=== PATIENT | female | born 1960 | race Two or more races ===

== ENCOUNTER 2017-12-24 10:56 | Inpatient (IN) | payer MEDICAID ==
[~2017-12-24] VITALS: Ht 167.6 cm; Wt 71.7 kg
[2017-12-24] MEDS ORDERED: DiphenhydrAMINE 50mg/ml Inj IVP ONE (11:00)
[2017-12-24] MEDS ORDERED: Sodium Chloride 500ML 500 ML IV ONE (11:00)
[2017-12-24 11:37] LABS: BASOPHILS % (AUTO) 0.8 % (0.0-2.0); EOSINOPHILS % (AUTO) 0.3 % (0.0-3.0); HEMATOCRIT 42.5 % (37.0-47.0); HEMOGLOBIN 14.9 G/DL (12.0-16.0); MEAN CORPUSCULAR VOLUME 90 FL (80-99); MONOCYTES % (AUTO) 4.4 % (1.0-10.0); NEUTROPHILS % (AUTO) 82.6 % (45.0-75.0); PLATELET COUNT 202 K/UL (150-450); RED BLOOD COUNT 4.75 M/UL (4.20-5.40); RED CELL DISTRIBUTION WIDTH 10.5 % (11.6-14.8); WHITE BLOOD COUNT 13.5 K/UL (4.8-10.8)
--- NOTE | 2017-12-24 11:51 | Diagnostic Imaging Report ---
Indications: Dizziness, vomiting Technique: Spiral acquisitions obtained through the brain. Angled axial and coronal 5 x 5 mm slices were reconstructed. Total dose length product 1552.03 mGycm. CTDI vol(s) 70.38 mGy. Dose reduction achieved using automated exposure control Comparison: None. Findings: No acute intracranial hemorrhage or edema. No mass effect nor midline shift. Normal ulrich-white differentiation. There is frontal calvarial hyperostosis. The mastoids are clear. The sinuses are clear. The orbits are unremarkable. Impression: Negative The CT scanner at [facility] is accredited by the [employer] and the scans are performed using protocols designed to limit radiation exposure to as low as reasonably achievable to attain images of sufficient resolution adequate for diagnostic evaluation.
[2017-12-24 11:53] LABS: ANION GAP 14 mmol/L (5-15); BLOOD UREA NITROGEN 13 mg/dL (7-18); CALCIUM 9.3 MG/DL (8.5-10.1); CARBON DIOXIDE 24 MMOL/L (21-32); CHLORIDE 102 MMOL/L (98-107); CREATININE 0.8 MG/DL (0.55-1.30); POTASSIUM 3.4 MMOL/L (3.5-5.1); SODIUM 140 MMOL/L (136-145)
--- NOTE | 2017-12-24 11:56 | Diagnostic Imaging Report ---
Indication: Chest pain Technique: One view of the chest Comparison: none Findings: There is a 1.5 cm nodule projected at the left lung base. The lungs and pleural spaces are otherwise clear. The heart size is upper limits of normal. Impression: 1.5 cm left basilar nodular opacity. Suspect that this represents a nipple shadow. Recommend repeat with nipple markers. This was discussed by phone with Dr. Cui at the time of interpretation No acute process otherwise Findings discussed by phone with Dr. Cui the time of interpretation
[2017-12-24 12:06] LABS: ALANINE AMINOTRANSFERASE 24 U/L (12-78); ALBUMIN 3.9 G/DL (3.4-5.0); ALBUMIN/GLOBULIN RATIO 0.8 (1.0-2.7); ALKALINE PHOSPHATASE 122 U/L (46-116); ASPARTATE AMINO TRANSFERASE 19 U/L (15-37); BILIRUBIN,TOTAL 0.5 MG/DL (0.2-1.0); CKMB 0.9 NG/ML (0.0-3.6); CREATINE KINASE 110 U/L (26-308)
[2017-12-24 12:16] VITALS: BP 109/62
[2017-12-24 12:28] LABS: APPEARANCE,URINE VERY CLOUDY; BILIRUBIN, URINE NEGATIVE (NEGATIVE); COLOR,URINE PALE YELLOW; GLUCOSE, URINE (UA) NEGATIVE (NEGATIVE); KETONES,URINE 2+ (NEGATIVE); LEUKOCYTE ESTERASE ,URINE 1+ (NEGATIVE); NITRITE,URINE NEGATIVE (NEGATIVE); PH,URINE 8 (4.5-8.0); PROTEIN,URINE 1+ (NEGATIVE); UROBILINOGEN,URINE NORMAL MG/DL (0.0-1.0)
[2017-12-24] MEDS ORDERED: Isovue-300 100ml vial INJ PRN (12:30)
--- NOTE | 2017-12-24 12:40 | Emergency Room Report ---
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 around 8:00 she had increased dizziness lightheadedness This was followed by multiple episodes of vomiting Patient still feels nauseated Denies any chest pain or shortness of breath denies any focal weakness Patient takes metformin for diabetes denies any other recent trauma Allergies: Coded Allergies: No Known Allergies (Unverified , 12/24/17) Patient History Past Medical History: see triage record Pertinent Family History: none Reviewed Nursing Documentation: PMH: Agreed; PSxH: Agreed Nursing Documentation-PMH Past Medical History: No History, Except For Hx Diabetes: Yes Review of Systems All Other Systems: negative except mentioned in HPI Physical Exam Vital Signs Date Time Temp Pulse Resp B/P (MAP) Pulse Ox O2 Delivery O2 Flow Rate FiO2 12/24/17 10:54 92 18 145/79 99 Room Air 12/24/17 12:16 97.5 Sp02 EP Interpretation: reviewed, normal General Appearance: mild distress - Appears uncomfortable, actively nauseated vomiting Head: normocephalic, atraumatic Eyes: bilateral eye PERRL, bilateral eye EOMI ENT: hearing grossly normal, normal pharynx, TMs + canals normal, uvula midline Neck: full range of motion, supple, no meningismus, no bony tend Respiratory: lungs clear, normal breath sounds, no rhonchi, no respiratory distress, no retraction, no accessory muscle use Cardiovascular #1: normal peripheral pulses, regular rate, rhythm, no edema, no gallop, no JVD, no murmur Gastrointestinal: normal bowel sounds, non tender, soft, no mass, no organomegaly, non-distended, no guarding, no hernia, no pulsatile mass, no rebound Genitourinary: no CVA tenderness Musculoskeletal: normal inspection Neurologic: oriented x3, responsive, 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 III-XII nml as tested, motor strength/ tone normal, sensory intact Psychiatric: mood/affect normal Skin: normal color, no rash, warm/dry, palpation normal Lymphatic: normal inspection, no adenopathy Medical Decision Making Diagnostic Impression: Primary Impression: Vomiting Additional Impressions: Persistent vomiting Severe dizziness ER Course Patient is a fairly complex patient with multiple differential to consideration including but not limited to cardiac cardiopulmonary and vascular emergencies Pathology such as infectious pathology also entertained neurological pathology given patient's severe dizziness such as occipital injury Patient's initial CT Has nonspecific findings and question possible neoplasm versus other and blood work are appropriate White blood cell count is minimally elevated there was some question of UTI as well patient further hydrated And placed into admission for further care Labs Test 12/24/17 11:00 12/24/17 11:23 12/24/17 11:56 White Blood Count 13.5 K/UL (4.8-10.8) Red Blood Count 4.75 M/UL (4.20-5.40) Hemoglobin 14.9 G/DL (12.0-16.0) Hematocrit 42.5 % (37.0-47.0) Mean Corpuscular Volume 90 FL (80-99) Mean Corpuscular Hemoglobin 31.4 PG (27.0-31.0) Mean Corpuscular Hemoglobin Concent 35.0 G/DL (32.0-36.0) Red Cell Distribution Width 10.5 % (11.6-14.8) Platelet Count 202 K/UL (150-450) Mean Platelet Volume 7.5 FL (6.5-10.1) Neutrophils (%) (Auto) 82.6 % (45.0-75.0) Lymphocytes (%) (Auto) 12.0 % (20.0-45.0) Monocytes (%) (Auto) 4.4 % (1.0-10.0) Eosinophils (%) (Auto) 0.3 % (0.0-3.0) Basophils (%) (Auto) 0.8 % (0.0-2.0) Sodium Level 140 MMOL/L (136-145) Potassium Level 3.4 MMOL/L (3.5-5.1) Chloride Level 102 MMOL/L (98-107) Carbon Dioxide Level 24 MMOL/L (21-32) Anion Gap 14 mmol/L (5-15) Blood Urea Nitrogen 13 mg/dL (7-18) Creatinine 0.8 MG/DL (0.55-1.30) Estimat Glomerular Filtration Rate > 60 mL/min (>60) Glucose Level 220 MG/DL (74-106) Calcium Level 9.3 MG/DL (8.5-10.1) Total Bilirubin 0.5 MG/DL (0.2-1.0) Aspartate Amino Transf (AST/SGOT) 19 U/L (15-37) Alanine Aminotransferase (ALT/SGPT) 24 U/L (12-78) Alkaline Phosphatase 122 U/L (46-116) Total Creatine Kinase 110 U/L (26-308) Creatine Kinase MB 0.9 NG/ML (0.0-3.6) Creatine Kinase MB Relative Index 0.8 Troponin I 0.017 ng/mL (0.000-0.056) Total Protein 8.5 G/DL (6.4-8.2) Albumin 3.9 G/DL (3.4-5.0) Globulin 4.6 g/dL Albumin/Globulin Ratio 0.8 (1.0-2.7) Lipase 146 U/L (73-393) Urine Color Pale yellow Urine Appearance Very cloudy Urine pH 8 (4.5-8.0) Urine Specific [place] 1.015 (1.005-1.035) Urine Protein 1+ (NEGATIVE) Urine Glucose (UA) Negative (NEGATIVE) Urine Ketones 2+ (NEGATIVE) Urine Blood Negative (NEGATIVE) Urine Nitrite Negative (NEGATIVE) Urine Bilirubin Negative (NEGATIVE) Urine Urobilinogen Normal MG/DL (0.0-1.0) Urine Leukocyte Esterase 1+ (NEGATIVE) Urine RBC 0-2 /HPF (0 - 2) Urine WBC 2-4 /HPF (0 - 2) Urine Squamous Epithelial Cells Occasional /LPF Urine Amorphous Sediment Many /LPF (NONE) Urine Bacteria Moderate /HPF (NONE) EKG Diagnostic Results Rate: normal Rhythm: NSR ST Segments: no acute changes Rhythm Strip Diag. Results EP Interpretation: yes Rate: 66 Rhythm: NSR, no PVC's, no ectopy Chest X-Ray Diagnostic Results Chest X-Ray Diagnostic Results : Chest X-Ray Ordered: Yes # of Views/Limited/Complete: 1 View Indication: Chest Pain EP Interpretation: No PA Xray: Interpretation reviewed - radiology Impression: Other - Impression: 1.5 cm left basilar nodular opacity. Suspect that this represents a nipple shaddow Electronically Signed by: Radiology CT/MRI/US Diagnostic Results CT/MRI/US Diagnostic Results : Impression CT abdomen pelvisImpression: Limited assessment of the GI tract, due to lack of enteric contrast administration No definite acute process 12 mm irregular opacity within the right posterior costophrenic sulcus. Most likely an area of scarring but possibly of neoplasm should also be considered. Consider further evaluation with PET/CT versus short interval three-month follow-up No definite abnormality seen to correspond to the nodular opacity seen on recent chest radiograph. However, this could be excluded from the imaging volume and as previously recommended nipple markers chest radiograph should be performed Cholelithiasis Nonobstructive left renal calyceal calculi Last Vital Signs Date Time Temp Pulse Resp B/P (MAP) Pulse Ox O2 Delivery O2 Flow Rate FiO2 12/24/17 12:16 97.5 66 19 109/62 97 Room Air Status: improved Disposition: ADMITTED INPATIENT Condition: Serious Referrals: NON PHYSICIAN (PCP) Jackeline Cui DO Dec 24, 2017 12:40
[2017-12-24] MEDS ORDERED: METFORMIN HCL1000 M1 ORAL (13:23)
--- NOTE | 2017-12-24 13:33 | Diagnostic Imaging Report ---
Indication: Abdominal pain, vomiting Technique: Spiral acquisitions obtained through the abdomen and pelvis. No oral contrast utilized, per referring physician request No IV contrast utilized, per referring physician request.. Multiplanar reconstructions were generated. Total dose length product 787.68 mGycm. CTDIvol(s) 15.91 mGy. Dose reduction achieved using automated exposure control Comparison: None Findings: Lack of enteric contrast limits assessment of the GI tract. The appendix is normal. There is colonic diverticulosis. No evidence of diverticulitis. There is prominence of some of the small bowel loops, some of which are fluid-filled. Prominence extends to the terminal ileum, where there is some evidence of stasis of contents. No free or loculated intraperitoneal gas or fluid. There is a small to moderate size hiatal hernia. The remainder the stomach is unremarkable. The duodenum is unremarkable. The gallbladder contains small gallstones. It is mildly distended but no wall thickening or cholecystic inflammation is evident. Lack of IV contrast limits assessment of the solid organs. The liver, bile ducts, pancreas, spleen, adrenals, right kidney are unremarkable. The left kidney demonstrates to calyceal calculi, largest measuring approximately 3 mm diameter. No ureteral calculi, hydronephrosis, or hydroureter demonstrated. No pelvic mass or adenopathy. No retroperitoneal or mesenteric mass or adenopathy. An irregular opacity is seen within the right posterior costophrenic sulcus measuring 12 mm in diameter. There are posterior dependent linear atelectatic changes. No definite abnormality corresponding to the left basilar nodular opacity described on recent chest radiograph. The bones are unremarkable. Impression: Limited assessment of the GI tract, due to lack of enteric contrast administration No definite acute process 12 mm irregular opacity within the right posterior costophrenic sulcus. Most likely an area of scarring but possibly of neoplasm should also be considered. Consider further evaluation with PET/CT versus short interval three-month follow-up No definite abnormality seen to correspond to the nodular opacity seen on recent chest radiograph. However, this could be excluded from the imaging volume and as previously recommended nipple markers chest radiograph should be performed Cholelithiasis Nonobstructive left renal calyceal calculi The CT scanner at [facility] is accredited by the [employer] and the scans are performed using protocols designed to limit radiation exposure to as low as reasonably achievable to attain images of sufficient resolution adequate for diagnostic evaluation.
[2017-12-24] MEDS ORDERED: cefTRIAXone 1 GM in D5W 55 ML IVPB ONE (13:45)
[2017-12-24 14:02] VITALS: BP 105/56
[2017-12-24 14:27] VITALS: BP 124/70
[2017-12-24 16:00] VITALS: BP 128/65
[2017-12-24] MEDS: Meclizine 25mg tab ORAL PRN (16:21)
[2017-12-24] MEDS: metFORMIN 500mg tab ORAL SCH (17:56)
[2017-12-24 20:00] VITALS: BP 118/62
[2017-12-24 20:01] VITALS: BP 118/62
[2017-12-24] MEDS: NovoLOG Insulin Flexpen SUBQ SCH (20:54)
[2017-12-25] VITALS: BP 109/65
[2017-12-25] MEDS: Meclizine 25mg tab ORAL PRN (03:54)
[2017-12-25 04:00] VITALS: BP 108/73
--- NOTE | 2017-12-25 04:45 | History and Physical Report ---
DATE OF ADMISSION: 12/24/2017 HISTORY OF PRESENT ILLNESS: This is a 57-year-old female that presented to the hospital with nausea and vomiting. 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 She was seen and worked up in the ER, continued to feel nauseous. She was admitted for observation. PAST MEDICAL HISTORY: Diabetes mellitus. HOME MEDICATIONS: Metformin only. ALLERGIES: None. SOCIAL HISTORY: Noncontributory. Denies tobacco or alcohol usage. REVIEW OF SYSTEMS: She denies any headaches, hematemesis, melena, hematochezia. PHYSICAL EXAMINATION: GENERAL: Reveals a female. VITAL SIGNS: Blood pressure is 120/60, heart rate 84, respirations 18, she is afebrile. HEENT: Unremarkable. CHEST: Clear breath sounds bilaterally. ABDOMEN: Soft. EXTREMITIES: There is no edema. NEUROLOGIC: Nonfocal. LABORATORY AND DIAGNOSTIC DATA: Normal CBC with the exception of white count 29467. Potassium 3.4. Alkaline phosphatase 122. Imaging study in the ER, the patient underwent pelvic and abdominal CT which is negative except for mild cholelithiasis, possible scarring in the right posterior costophrenic sulcus, nonobstructive left renal calculi. IMPRESSION: 1. Nausea and emesis. 2. Suspect labyrinthitis. 3. Urolithiasis. 4. Cholelithiasis. DISCUSSION: 1. Admit to the hospital. 2. Diabetes care. 3. IV fluids. 4. Continue metformin and insulin sliding scale. 5. IV fluids. 6. Consider GI evaluation. 7. We will follow carefully. Jack Cabrera M.D. DR: Paulo JOB#: [id number] CC:
[2017-12-25] MEDS: NovoLOG Insulin Flexpen SUBQ SCH ×4 (05:36→20:51)
[2017-12-25 07:41] LABS: BASOPHILS % (AUTO) 0.7 % (0.0-2.0); EOSINOPHILS % (AUTO) 0.6 % (0.0-3.0); HEMATOCRIT 38.9 % (37.0-47.0); HEMOGLOBIN 14.3 G/DL (12.0-16.0); LYMPHOCYTES % (AUTO) 17.3 % (20.0-45.0); MEAN CORPUSCULAR VOLUME 90 FL (80-99); MONOCYTES % (AUTO) 5.6 % (1.0-10.0); NEUTROPHILS % (AUTO) 75.8 % (45.0-75.0); PLATELET COUNT 206 K/UL (150-450); RED BLOOD COUNT 4.33 M/UL (4.20-5.40); RED CELL DISTRIBUTION WIDTH 10.9 % (11.6-14.8); WHITE BLOOD COUNT 7.1 K/UL (4.8-10.8)
[2017-12-25 08:00] VITALS: BP 129/69
[2017-12-25 08:06] LABS: ALANINE AMINOTRANSFERASE 20 U/L (12-78); ALBUMIN 3.4 G/DL (3.4-5.0); ALBUMIN/GLOBULIN RATIO 0.8 (1.0-2.7); ALKALINE PHOSPHATASE 95 U/L (46-116); ANION GAP 8 mmol/L (5-15); ASPARTATE AMINO TRANSFERASE 17 U/L (15-37); BLOOD UREA NITROGEN 13 mg/dL (7-18); CALCIUM 8.7 MG/DL (8.5-10.1); CARBON DIOXIDE 28 MMOL/L (21-32); CHLORIDE 105 MMOL/L (98-107); CREATININE 0.7 MG/DL (0.55-1.30); POTASSIUM 3.6 MMOL/L (3.5-5.1); SODIUM 141 MMOL/L (136-145)
[2017-12-25] MEDS: metFORMIN 500mg tab ORAL SCH ×2 (08:22→17:12)
[2017-12-25] MEDS: Meclizine 25mg tab ORAL SCH ×3 (10:48→22:53)
[2017-12-25 12:00] VITALS: BP 132/78
--- NOTE | 2017-12-25 14:07 | Pulmonology Progress Note ---
Assessment/Plan Assessment/Plan IMPRESSION: 1. Nausea and emesis. 2. Suspect labyrinthitis. 3. Urolithiasis. 4. Cholelithiasis. DISCUSSION: 1. Admitted to the hospital. 2. Diabetes care. 3. IV fluids. 4. Continue metformin and insulin sliding scale. 5. IV fluids. 6. I have requestedGI evaluation. 7. I will follow carefully. 8. I will request MRI brain Subjective Interval Events: Tearful. Continues to report and dizziness Constitutional: Reports: no symptoms HEENT: Repors: no symptoms Respiratory: Reports: no symptoms Cardiovascular: Reports: no symptoms Gastrointestinal/Abdominal: Reports: nausea, vomiting Genitourinary: Reports: no symptoms Neurologic: Reports: other - vertigo Psychiatric: Reports: no symptoms Skin: Reports: no symptoms Allergies: Coded Allergies: No Known Allergies (Unverified , 12/24/17) Objective Last 24 Hour Vital Signs Date Time Temp Pulse Resp B/P (MAP) Pulse Ox O2 Delivery O2 Flow Rate FiO2 12/25/17 12:00 98.6 81 19 132/78 (96) 98 12/25/17 08:51 Room Air 12/25/17 08:00 99.4 79 19 129/69 (89) 96 12/25/17 04:00 98.2 79 20 108/73 (85) 97 12/25/17 00:00 98.5 76 20 109/65 (80) 97 12/24/17 20:21 Room Air 12/24/17 20:01 99.0 77 20 118/62 (80) 97 12/24/17 16:00 98.3 68 20 128/65 (86) 100 12/24/17 14:27 98.4 68 16 124/70 (88) 100 12/24/17 14:15 97.5 72 19 105/56 98 Room Air 12/24/17 14:08 Room Air Intake and Output 12/24/17 12/25/17 19:00 07:00 Intake Total 1180 ml Output Total 400 ml Balance 780 ml Intake Oral 680 ml IV Total 500 ml Output Urine Total 400 ml # Voids 1 2 General Appearance: no acute distress HEENT: normocephalic Respiratory/Chest: chest wall non-tender, lungs clear Cardiovascular: normal peripheral pulses Abdomen: normal bowel sounds, soft, non tender Extremities: no cyanosis Microbiology Date/Time Source Procedure Growth Status 12/24/17 11:56 Urine,Clean Catch Urine Culture - Preliminary Resulted Laboratory Tests 12/25/17 06:50: White Blood Count 7.1, Red Blood Count 4.33, Hemoglobin 14.3, Hematocrit 38.9, Mean Corpuscular Volume 90, Mean Corpuscular Hemoglobin 32.9H, Mean Corpuscular Hemoglobin Concent 36.6H, Red Cell Distribution Width 10.9L, Platelet Count 206 , Mean Platelet Volume 7.8, Neutrophils (%) (Auto) 75.8H, Lymphocytes (%) (Auto ) 17.3L, Monocytes (%) (Auto) 5.6, Eosinophils (%) (Auto) 0.6, Basophils (%) ( Auto) 0.7, Sodium Level 141, Potassium Level 3.6, Chloride Level 105, Carbon Dioxide Level 28, Anion Gap 8, Blood Urea Nitrogen 13, Creatinine 0.7, Estimat Glomerular Filtration Rate > 60, Glucose Level 185H, Calcium Level 8.7, Total Bilirubin 1.0, Aspartate Amino Transf (AST/SGOT) 17, Alanine Aminotransferase ( ALT/SGPT) 20, Alkaline Phosphatase 95, Total Protein 7.7, Albumin 3.4, Globulin 4.3, Albumin/Globulin Ratio 0.8L Current Medications Medications (Trade) Dose Ordered Sig/Cynthia Route PRN Reason Start Time Stop Time Status Last Admin Dose Admin Dextrose (Dextrose 50%) 25 ml Q30M PRN IV Hypoglycemia 12/24/17 17:15 01/23/18 17:14 Dextrose (Dextrose 50%) 50 ml Q30M PRN IV Hypoglycemia 12/24/17 17:15 01/23/18 17:14 Insulin Aspart (NovoLOG) BEFORE MEALS AND HS SUBQ 12/24/17 21:00 01/23/18 20:59 12/24/17 20:54 Iopamidol (Isovue-300 100ml) 100 ml NOW PRN INJ Radiology Procedure 12/24/17 12:30 Meclizine HCl (Antivert) 50 mg Q6H ORAL 12/25/17 11:00 01/24/18 10:59 12/25/17 10:48 Metformin HCl (Glucophage) 1,000 mg BID ORAL 12/24/17 18:00 01/23/18 17:59 12/25/17 08:22 Metoclopramide HCl (Reglan) 10 mg Q8H PRN IVP Nausea & Vomiting 12/25/17 13:15 01/24/18 13:14 Ondansetron HCl (Zofran) 4 mg Q6H PRN IVP Nausea & Vomiting 12/24/17 17:15 01/23/18 17:14 12/24/17 17:26 Sodium Chloride 1,000 ml @ 50 mls/hr Q20H IV 12/24/17 20:30 01/23/18 20:29 12/24/17 20:33 Jack Cabrera MD Dec 25, 2017 14:07
[2017-12-25] MEDS: Metoclopramide 10mg/2ml Inj IVP PRN (14:42)
--- NOTE | 2017-12-25 14:56 | GI Initial Consult Note ---
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 Pt seen, A&Ox4 c/o of nausea and reports persistent vomiting last night. Stated she had an episode this morning. Denied any hematemesis or coffee grounds. Family believes may be possible from ingesting bad food. Denies any diarrhea or constipation. Patient has history of DM, dx approximately 8 years ago. No history of endoscopy / colonoscopy. Home Meds Reported Medications Metformin Hcl* (METFORMIN HCL*) 1,000 Mg Tablet, 1000 MG ORAL BID, TAB 12/24/17 Med list reviewed/reconciled: Yes Allergies: Coded Allergies: No Known Allergies (Unverified , 12/24/17) Patient History Limited by: language barrier History Provided By: Patient, Family Member PMH Narrative Past Medical History: see triage record Pertinent Family History: none Reviewed Nursing Documentation: PMH: Agreed; PSxH: Agreed Nursing Documentation-PM Past Medical History: No History, Except For Hx Diabetes: Yes Social History: Denies: smoking, alcohol use, drug use, other Review of Systems All Other Systems: negative except mentioned in HPI Physical Exam Vital Signs Date Time Temp Pulse Resp B/P (MAP) Pulse Ox O2 Delivery O2 Flow Rate FiO2 12/24/17 10:54 92 18 145/79 99 Room Air 12/24/17 12:16 97.5 Sp02 EP Interpretation: reviewed, normal Labs Laboratory Tests Test 12/25/17 06:50 White Blood Count 7.1 K/UL (4.8-10.8) Red Blood Count 4.33 M/UL (4.20-5.40) Hemoglobin 14.3 G/DL (12.0-16.0) Hematocrit 38.9 % (37.0-47.0) Mean Corpuscular Volume 90 FL (80-99) Mean Corpuscular Hemoglobin 32.9 PG (27.0-31.0) H Mean Corpuscular Hemoglobin Concent 36.6 G/DL (32.0-36.0) H Red Cell Distribution Width 10.9 % (11.6-14.8) L Platelet Count 206 K/UL (150-450) Mean Platelet Volume 7.8 FL (6.5-10.1) Neutrophils (%) (Auto) 75.8 % (45.0-75.0) H Lymphocytes (%) (Auto) 17.3 % (20.0-45.0) L Monocytes (%) (Auto) 5.6 % (1.0-10.0) Eosinophils (%) (Auto) 0.6 % (0.0-3.0) Basophils (%) (Auto) 0.7 % (0.0-2.0) Sodium Level 141 MMOL/L (136-145) Potassium Level 3.6 MMOL/L (3.5-5.1) Chloride Level 105 MMOL/L (98-107) Carbon Dioxide Level 28 MMOL/L (21-32) Anion Gap 8 mmol/L (5-15) Blood Urea Nitrogen 13 mg/dL (7-18) Creatinine 0.7 MG/DL (0.55-1.30) Estimat Glomerular Filtration Rate > 60 mL/min (>60) Glucose Level 185 MG/DL (74-106) H Calcium Level 8.7 MG/DL (8.5-10.1) Total Bilirubin 1.0 MG/DL (0.2-1.0) Aspartate Amino Transf (AST/SGOT) 17 U/L (15-37) Alanine Aminotransferase (ALT/SGPT) 20 U/L (12-78) Alkaline Phosphatase 95 U/L (46-116) Total Protein 7.7 G/DL (6.4-8.2) Albumin 3.4 G/DL (3.4-5.0) Globulin 4.3 g/dL Albumin/Globulin Ratio 0.8 (1.0-2.7) L General Appearance: well appearing, no apparent distress, alert Head: normocephalic EENT: PERRL/EOMI, normal ENT inspection Neck: supple Respiratory: normal breath sounds, no respiratory distress Cardiovascular: normal rate Gastrointestinal: normal inspection, non tender, soft, normal bowel sounds, non -distended Rectal: deferred Genitourinary: no CVA tenderness Musculoskeletal: normal inspection, back normal Neurologic: normal inspection, alert, oriented x3, responsive Psychiatric: normal inspection, judgement/insight normal, memory normal Skin: normal inspection, normal color, no rash, warm/dry, palpation normal, well hydrated Lymphatic: normal inspection, no adenopathy Current Medications Current Medications Medications (Trade) Dose Ordered Sig/Cynthia Route PRN Reason Start Time Stop Time Status Last Admin Dose Admin Dextrose (Dextrose 50%) 25 ml Q30M PRN IV Hypoglycemia 12/24/17 17:15 01/23/18 17:14 Dextrose (Dextrose 50%) 50 ml Q30M PRN IV Hypoglycemia 12/24/17 17:15 01/23/18 17:14 Insulin Aspart (NovoLOG) BEFORE MEALS AND HS SUBQ 12/24/17 21:00 01/23/18 20:59 12/24/17 20:54 Iopamidol (Isovue-300 100ml) 100 ml NOW PRN INJ Radiology Procedure 12/24/17 12:30 Meclizine HCl (Antivert) 50 mg Q6H ORAL 12/25/17 11:00 01/24/18 10:59 12/25/17 10:48 Metformin HCl (Glucophage) 1,000 mg BID ORAL 12/24/17 18:00 01/23/18 17:59 12/25/17 08:22 Metoclopramide HCl (Reglan) 10 mg Q8H PRN IVP Nausea & Vomiting 12/25/17 13:15 01/24/18 13:14 12/25/17 14:42 Ondansetron HCl (Zofran) 4 mg Q6H PRN IVP Nausea & Vomiting 12/24/17 17:15 01/23/18 17:14 12/24/17 17:26 Sodium Chloride 1,000 ml @ 50 mls/hr Q20H IV 12/24/17 20:30 01/23/18 20:29 12/24/17 20:33 GI: Plan Problems: (1) Diabetes (2) Gastroparesis due to DM (3) Severe dizziness (4) Persistent vomiting (5) Vomiting Plan CTAP reviewed >> no acute process - 12 mm irregular opacity within the right posterior costophrenic sulcus. - Cholelithiasis will consider endoscopy if patient does not respond to medical management reglan IV ATC revert to FLD, advance as tolerated DM management ppi zofran prn fu labs outpatient colonoscopy Discussed with Dr. Bowden. Thank you for this patient referral, we will follow. The patient was seen and examined at bedside and all new and available data was reviewed in the patients chart. I agree with the above findings, impression and plan. (Patient seen earlier today. Signature stamp does not reflect patient encounter time.). - [facility] Dec 25, 2017 14:56
[2017-12-25 16:00] VITALS: BP 114/60
--- NOTE | 2017-12-25 17:12 | Diagnostic Imaging Report ---
Indication: Altered mental status Technique: MRI the brain performed utilizing T1 sagittal, T2 axial, T1 FLAIR axial, T2 FLAIR axial, T2*GRE and diffusion axial images without gadolinium. Comparison: Noncontrast CT of the head 12/24/2017. Findings: No diffusion abnormalities are seen on diffusion weighted imaging. The sulci, ventricles and cisterns are within normal limits for age. No significant extra-axial collections of fluid or blood are demonstrated. Within the region of the pituitary gland there is a small cystic structure which measures approximately 5 mm in diameter. Demonstrates T2 signal hyperintensity, T1 FLAIR signal hypointensity and T2 FLAIR isointensity. It is not restricting. It is slightly off the midline to the right. There is no appreciable septation or intracystic nodule. Expected signal flow voids are seen of the vessels of the skull base. Visualized mastoid air cells and paranasal sinuses are unremarkable. There is hyperostosis of frontal calvarium. IMPRESSION: No evidence of acute infarct, intracranial hemorrhage or midline shift. Approximately 5 mm cystic structure in the pituitary gland which may represent a Rathke's cleft cyst or small cystic pituitary adenoma. Additional etiologies not excluded. Further evaluation with pituitary protocol MRI without and with contrast recommended.
--- NOTE | 2017-12-25 17:16 | Cardiology Report ---
APPROVED REPORT EKG Measurement Heart [id number] Normal sinus rhythm Normal ECG
[2017-12-25 20:16] VITALS: BP 139/67
[2017-12-26 00:15] VITALS: BP 126/64
[2017-12-26 04:13] VITALS: BP 128/70
[2017-12-26] MEDS: Meclizine 25mg tab ORAL SCH ×5 (05:00→22:34)
[2017-12-26] MEDS: Metoclopramide 10mg/2ml Inj IVP PRN (06:21)
[2017-12-26] MEDS: NovoLOG Insulin Flexpen SUBQ SCH ×4 (06:21→21:00)
[2017-12-26 06:31] LABS: BASOPHILS % (AUTO) 1.3 % (0.0-2.0); EOSINOPHILS % (AUTO) 0.4 % (0.0-3.0); HEMATOCRIT 39.4 % (37.0-47.0); HEMOGLOBIN 13.8 G/DL (12.0-16.0); LYMPHOCYTES % (AUTO) 22.7 % (20.0-45.0); MEAN CORPUSCULAR VOLUME 90 FL (80-99); MONOCYTES % (AUTO) 6.2 % (1.0-10.0); NEUTROPHILS % (AUTO) 69.5 % (45.0-75.0); PLATELET COUNT 182 K/UL (150-450); RED BLOOD COUNT 4.37 M/UL (4.20-5.40); RED CELL DISTRIBUTION WIDTH 10.5 % (11.6-14.8); WHITE BLOOD COUNT 5.2 K/UL (4.8-10.8)
[2017-12-26 06:59] LABS: ANION GAP 9 mmol/L (5-15); BLOOD UREA NITROGEN 12 mg/dL (7-18); CALCIUM 8.6 MG/DL (8.5-10.1); CARBON DIOXIDE 25 MMOL/L (21-32); CHLORIDE 105 MMOL/L (98-107); CREATININE 0.6 MG/DL (0.55-1.30); POTASSIUM 3.5 MMOL/L (3.5-5.1); SODIUM 139 MMOL/L (136-145)
[2017-12-26 08:00] VITALS: BP 120/73
[2017-12-26] MEDS: metFORMIN 500mg tab ORAL SCH ×2 (09:00→18:00)
--- NOTE | 2017-12-26 09:37 | Pulmonology Progress Note ---
Assessment/Plan Assessment/Plan IMPRESSION: 1. Nausea and emesis. 2. Suspect labyrinthitis. 3. Urolithiasis. 4. Cholelithiasis. DISCUSSION: 1. Admitted to the hospital. 2. Diabetes care. 3. IV fluids. 4. Continue metformin and insulin sliding scale. 5. IV fluids. 6. MRI brain negative 7. Emphasized to take meclizine DC home when better Subjective Interval Events: MRI brain negative; pt declining Meclizine Constitutional: Reports: no symptoms HEENT: Repors: no symptoms Respiratory: Reports: no symptoms Cardiovascular: Reports: no symptoms Gastrointestinal/Abdominal: Reports: no symptoms Genitourinary: Reports: no symptoms Neurologic: Reports: other - vertigo Psychiatric: Reports: no symptoms Skin: Reports: no symptoms Allergies: Coded Allergies: No Known Allergies (Unverified , 12/24/17) Objective Last 24 Hour Vital Signs Date Time Temp Pulse Resp B/P (MAP) Pulse Ox O2 Delivery O2 Flow Rate FiO2 12/26/17 08:00 98.5 82 18 120/73 (89) 98 12/26/17 04:13 97.9 72 18 128/70 (89) 98 12/26/17 00:15 98.9 72 18 126/64 (84) 96 12/25/17 21:00 Room Air 12/25/17 20:16 99.2 78 16 139/67 (91) 98 12/25/17 16:00 99.4 72 20 114/60 (78) 98 12/25/17 12:00 98.6 81 19 132/78 (96) 98 Intake and Output 12/25/17 12/26/17 18:59 06:59 Intake Total 790 ml 910 ml Balance 790 ml 910 ml Intake Oral 240 ml 360 ml IV Total 550 ml 550 ml # Voids 3 3 General Appearance: no acute distress HEENT: normocephalic Respiratory/Chest: chest wall non-tender, lungs clear Cardiovascular: normal peripheral pulses, normal rate Abdomen: normal bowel sounds, soft, non tender Extremities: no cyanosis Microbiology Date/Time Source Procedure Growth Status 12/24/17 11:56 Urine,Clean Catch Urine Culture - Preliminary Resulted Laboratory Tests 12/26/17 05:58: White Blood Count 5.2, Red Blood Count 4.37, Hemoglobin 13.8, Hematocrit 39.4, Mean Corpuscular Volume 90, Mean Corpuscular Hemoglobin 31.5H, Mean Corpuscular Hemoglobin Concent 35.0, Red Cell Distribution Width 10.5L, Platelet Count 182, Mean Platelet Volume 7.4, Neutrophils (%) (Auto) 69.5, Lymphocytes (%) (Auto) 22.7, Monocytes (%) (Auto) 6.2, Eosinophils (%) (Auto) 0.4, Basophils (%) (Auto ) 1.3, Sodium Level 139, Potassium Level 3.5, Chloride Level 105, Carbon Dioxide Level 25, Anion Gap 9, Blood Urea Nitrogen 12, Creatinine 0.6, Estimat Glomerular Filtration Rate > 60, Glucose Level 158H, Calcium Level 8.6 Current Medications Medications (Trade) Dose Ordered Sig/Cynthia Route PRN Reason Start Time Stop Time Status Last Admin Dose Admin Dextrose (Dextrose 50%) 25 ml Q30M PRN IV Hypoglycemia 12/24/17 17:15 01/23/18 17:14 Dextrose (Dextrose 50%) 50 ml Q30M PRN IV Hypoglycemia 12/24/17 17:15 01/23/18 17:14 Insulin Aspart (NovoLOG) BEFORE MEALS AND HS SUBQ 12/24/17 21:00 01/23/18 20:59 12/24/17 20:54 Iopamidol (Isovue-300 100ml) 100 ml NOW PRN INJ Radiology Procedure 12/24/17 12:30 Meclizine HCl (Antivert) 50 mg Q6H ORAL 12/25/17 11:00 01/24/18 10:59 12/25/17 10:48 Metformin HCl (Glucophage) 1,000 mg BID ORAL 12/24/17 18:00 01/23/18 17:59 12/25/17 17:12 Metoclopramide HCl (Reglan) 10 mg Q8H PRN IVP Nausea & Vomiting 12/25/17 13:15 01/24/18 13:14 12/26/17 06:21 Ondansetron HCl (Zofran) 4 mg Q6H PRN IVP Nausea & Vomiting 12/24/17 17:15 01/23/18 17:14 12/25/17 21:10 Promethazine HCl (Phenergan) 25 mg Q6H PRN IM Nausea & Vomiting 12/26/17 09:30 01/25/18 09:29 Sodium Chloride 1,000 ml @ 75 mls/hr [id number] IV 12/26/17 09:03 01/25/18 09:02 Jack Cabrera MD Dec 26, 2017 09:37
[2017-12-26 12:00] VITALS: BP 121/71
--- NOTE | 2017-12-26 12:07 | GI Progress Note ---
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 Bowden. Assessment/Plan CTAP reviewed >> no acute process - 12 mm irregular opacity within the right posterior costophrenic sulcus. - Cholelithiasis suspected Labyrinthitis >> meclizine reglan IV ATC revert to FLD, advance as tolerated DM management ppi zofran prn fu labs outpatient colonoscopy dc when symptoms controlled The patient was seen and examined at bedside and all new and available data was reviewed in the patients chart. I agree with the above findings, impression and plan. (Patient seen earlier today. Signature stamp does not reflect patient encounter time.). - Tre Bowden MD Subjective Subjective nausea Objective Last 24 Hour Vital Signs Date Time Temp Pulse Resp B/P (MAP) Pulse Ox O2 Delivery O2 Flow Rate FiO2 12/26/17 10:52 Room Air 12/26/17 09:00 Room Air 12/26/17 08:00 98.5 82 18 120/73 (89) 98 12/26/17 04:13 97.9 72 18 128/70 (89) 98 12/26/17 00:15 98.9 72 18 126/64 (84) 96 12/25/17 21:00 Room Air 12/25/17 20:16 99.2 78 16 139/67 (91) 98 12/25/17 16:00 99.4 72 20 114/60 (78) 98 Intake and Output 12/25/17 12/26/17 18:59 06:59 Intake Total 790 ml 910 ml Balance 790 ml 910 ml Intake Oral 240 ml 360 ml IV Total 550 ml 550 ml # Voids 3 3 Laboratory Tests Test 12/26/17 05:58 White Blood Count 5.2 K/UL (4.8-10.8) Red Blood Count 4.37 M/UL (4.20-5.40) Hemoglobin 13.8 G/DL (12.0-16.0) Hematocrit 39.4 % (37.0-47.0) Mean Corpuscular Volume 90 FL (80-99) Mean Corpuscular Hemoglobin 31.5 PG (27.0-31.0) H Mean Corpuscular Hemoglobin Concent 35.0 G/DL (32.0-36.0) Red Cell Distribution Width 10.5 % (11.6-14.8) L Platelet Count 182 K/UL (150-450) Mean Platelet Volume 7.4 FL (6.5-10.1) Neutrophils (%) (Auto) 69.5 % (45.0-75.0) Lymphocytes (%) (Auto) 22.7 % (20.0-45.0) Monocytes (%) (Auto) 6.2 % (1.0-10.0) Eosinophils (%) (Auto) 0.4 % (0.0-3.0) Basophils (%) (Auto) 1.3 % (0.0-2.0) Sodium Level 139 MMOL/L (136-145) Potassium Level 3.5 MMOL/L (3.5-5.1) Chloride Level 105 MMOL/L (98-107) Carbon Dioxide Level 25 MMOL/L (21-32) Anion Gap 9 mmol/L (5-15) Blood Urea Nitrogen 12 mg/dL (7-18) Creatinine 0.6 MG/DL (0.55-1.30) Estimat Glomerular Filtration Rate > 60 mL/min (>60) Glucose Level 158 MG/DL (74-106) H Calcium Level 8.6 MG/DL (8.5-10.1) Height (Feet): 5 Height (Inches): 6.00 Weight (Pounds): 158 General Appearance: WD/WN, no apparent distress, alert Cardiovascular: normal rate Respiratory/Chest: normal breath sounds, no respiratory distress Abdominal Exam: normal bowel sounds, non tender, soft Extremities: normal range of motion, non-tender Aung Trotter NP Dec 26, 2017 12:07
[2017-12-26 16:00] VITALS: BP 118/63
[2017-12-26 20:00] VITALS: BP 126/70
[2017-12-27] VITALS: BP 121/63
[2017-12-27 04:00] VITALS: BP 123/66
[2017-12-27] MEDS: Meclizine 25mg tab ORAL SCH ×4 (05:47→22:30)
[2017-12-27 05:50] LABS: BASOPHILS % (AUTO) 1.2 % (0.0-2.0); HEMATOCRIT 39.3 % (37.0-47.0); HEMOGLOBIN 13.7 G/DL (12.0-16.0); MEAN CORPUSCULAR VOLUME 90 FL (80-99); MONOCYTES % (AUTO) 8.4 % (1.0-10.0); NEUTROPHILS % (AUTO) 56.3 % (45.0-75.0); PLATELET COUNT 194 K/UL (150-450); RED BLOOD COUNT 4.39 M/UL (4.20-5.40); RED CELL DISTRIBUTION WIDTH 10.6 % (11.6-14.8); WHITE BLOOD COUNT 5.5 K/UL (4.8-10.8)
[2017-12-27 05:59] LABS: ANION GAP 10 mmol/L (5-15); BLOOD UREA NITROGEN 8 mg/dL (7-18); CALCIUM 8.6 MG/DL (8.5-10.1); CARBON DIOXIDE 26 MMOL/L (21-32); CHLORIDE 105 MMOL/L (98-107); CREATININE 0.6 MG/DL (0.55-1.30); POTASSIUM 3.5 MMOL/L (3.5-5.1); SODIUM 141 MMOL/L (136-145)
[2017-12-27] MEDS: NovoLOG Insulin Flexpen SUBQ SCH ×4 (06:30→20:14)
[2017-12-27 08:00] VITALS: BP 122/73
[2017-12-27] MEDS: metFORMIN 500mg tab ORAL SCH ×2 (08:32→17:25)
--- NOTE | 2017-12-27 09:24 | Nephrology Progress Note ---
Assessment/Plan Assessment/Plan A/P 1) UTI- start po ceftin 2) Dizzyness- meclizine - MRI negative - treat UTI and if no improvement cslt Neuro in am if available 3) DVT prophylaxsis with lovenox 4) DM- metformin Subjective Date patient seen: Dec 27, 2017 Time patient seen: 09:22 ROS Limited/Unobtainable: No Neurologic/Psychiatric: Reports: headache Allergies: Coded Allergies: No Known Allergies (Unverified , 12/24/17) Subjective Patient still dizzy but no more emesis Objective Last 24 Hour Vital Signs Date Time Temp Pulse Resp B/P (MAP) Pulse Ox O2 Delivery O2 Flow Rate FiO2 12/27/17 08:00 98.0 89 20 122/73 (89) 97 12/27/17 04:00 99.0 76 19 123/66 (85) 95 12/27/17 00:00 99.1 76 19 121/63 (82) 96 12/26/17 21:00 Room Air 12/26/17 20:00 99.6 69 17 126/70 (88) 96 12/26/17 16:00 99.3 69 16 118/63 (81) 95 12/26/17 12:00 99.5 74 18 121/71 (88) 100 12/26/17 10:52 Room Air Intake and Output 12/26/17 12/27/17 19:00 07:00 Intake Total 235 ml 195 ml Balance 235 ml 195 ml Intake Oral 60 ml 120 ml IV Total 175 ml 75 ml # Voids 2 # Bowel Movements 1 Laboratory Tests 12/27/17 05:12: White Blood Count 5.5, Red Blood Count 4.39, Hemoglobin 13.7, Hematocrit 39.3, Mean Corpuscular Volume 90, Mean Corpuscular Hemoglobin 31.3H, Mean Corpuscular Hemoglobin Concent 35.0, Red Cell Distribution Width 10.6L, Platelet Count 194, Mean Platelet Volume 7.3, Neutrophils (%) (Auto) 56.3, Lymphocytes (%) (Auto) 33.0, Monocytes (%) (Auto) 8.4, Eosinophils (%) (Auto) 1.0, Basophils (%) (Auto ) 1.2, Sodium Level 141, Potassium Level 3.5, Chloride Level 105, Carbon Dioxide Level 26, Anion Gap 10, Blood Urea Nitrogen 8, Creatinine 0.6, Estimat Glomerular Filtration Rate > 60, Glucose Level 129H, Calcium Level 8.6 Height (Feet): 5 Height (Inches): 6.00 Weight (Pounds): 158 General Appearance: no apparent distress, alert EENT: normal ENT inspection Neck: normal alignment, supple Cardiovascular: normal rate, regular rhythm Respiratory/Chest: lungs clear, normal breath sounds Abdomen: non tender, soft Edema: no edema noted Arm (L), no edema noted Arm (R), no edema noted Leg (L), no edema noted Leg (R), no edema noted Pedal (L), no edema noted Pedal (R), no edema noted Generalized Danny Hatch MD Dec 27, 2017 09:24
[2017-12-27 11:32] VITALS: BP 118/70
[2017-12-27 16:00] VITALS: BP 117/68
[2017-12-27 20:01] VITALS: BP 122/72
[2017-12-28] VITALS: BP 100/55
[2017-12-28 04:00] VITALS: BP 118/69
[2017-12-28] MEDS: Meclizine 25mg tab ORAL SCH ×3 (05:31→17:01)
[2017-12-28] MEDS: NovoLOG Insulin Flexpen SUBQ SCH ×3 (05:42→16:30)
[2017-12-28 08:00] VITALS: BP 118/67
[2017-12-28] MEDS: metFORMIN 500mg tab ORAL SCH ×2 (08:25→17:01)
--- NOTE | 2017-12-28 09:26 | Nephrology Progress Note ---
Assessment/Plan Assessment/Plan A/P 1) UTI- po ceftin 2) Dizzyness- meclizine - MRI negative - treat UTI - Neurology not available - ID to evaluate for possible labrynthitis 3) DVT prophylaxsis with lovenox 4) DM- metformin Subjective Date patient seen: Dec 28, 2017 Time patient seen: 09:25 ROS Limited/Unobtainable: No Neurologic/Psychiatric: Reports: headache, other - dizzy Allergies: Coded Allergies: No Known Allergies (Unverified , 12/24/17) Subjective Patient still dizzy Objective Last 24 Hour Vital Signs Date Time Temp Pulse Resp B/P (MAP) Pulse Ox O2 Delivery O2 Flow Rate FiO2 12/28/17 08:00 98.8 89 18 118/67 (84) 97 12/28/17 04:00 99.0 75 17 118/69 (85) 95 12/28/17 00:00 98.5 69 19 100/55 (70) 98 12/27/17 21:00 Room Air 12/27/17 20:01 98.7 66 17 122/72 (89) 97 12/27/17 16:00 97.8 87 19 117/68 (84) 97 12/27/17 11:32 98.5 67 20 118/70 (86) 96 Intake and Output 12/27/17 12/28/17 19:00 07:00 Intake Total 1541 ml 1100 ml Output Total 2 ml Balance 1541 ml 1098 ml Intake Oral 641 ml 240 ml IV Total 900 ml 860 ml Output Urine Total 2 ml Height (Feet): 5 Height (Inches): 6.00 Weight (Pounds): 158 General Appearance: no apparent distress, alert EENT: normal ENT inspection Neck: normal alignment Cardiovascular: normal rate, regular rhythm Respiratory/Chest: lungs clear, normal breath sounds Abdomen: non tender, soft Edema: no edema noted Arm (L), no edema noted Arm (R), no edema noted Leg (L), no edema noted Leg (R), no edema noted Pedal (L), no edema noted Pedal (R), no edema noted Generalized Danny Hatch MD Dec 28, 2017 09:26
--- NOTE | 2017-12-28 11:23 | Consultation ---
History of Present Illness General Date patient seen: Dec 28, 2017 Chief Complaint: Vomiting Referring physician: ARMOND Reason for Consultation: VOMITING Present Illness HPI Ms Alcantara is a 57 yo female with PMHx of DM who presented to the ED on 12/24/17 with nausea and dizziness. The patient s dizziness and nausea has persisted. She reports that she had light lightheadedness and dizziness with vomiting. In the ED she had increase WBCs of 13 but this resolved by the next day. Her UA showed possible mild UTI. UCx contaminants. Patient was paced on Abx.She does reprot that starting today her right ear feels full but not painful. No diarrhea. No fevers. No skin lesions or vison changes. No Cough, CP, SOB. No headaches, or hematemesis. Patient thinks she eat bad food. ID consulted for infectious cause of dizziness and vomiting. PMHx/PSHx DM SocHX No E/T/D FamHx Not contributory Allergies: Coded Allergies: No Known Allergies (Unverified , 12/24/17) Medication History Scheduled Metformin Hcl* (Metformin Hcl*), 1,000 MG ORAL BID, (Reported) Patient History Healthcare decision maker Resuscitation status Advanced Directive on File Review of Systems All Other Systems: negative except mentioned in HPI Physical Exam Last 24 Hour Vital Signs Date Time Temp Pulse Resp B/P (MAP) Pulse Ox O2 Delivery O2 Flow Rate FiO2 12/28/17 09:00 Room Air 12/28/17 08:00 98.8 89 18 118/67 (84) 97 12/28/17 04:00 99.0 75 17 118/69 (85) 95 12/28/17 00:00 98.5 69 19 100/55 (70) 98 12/27/17 21:00 Room Air 12/27/17 20:01 98.7 66 17 122/72 (89) 97 12/27/17 16:00 97.8 87 19 117/68 (84) 97 12/27/17 11:32 98.5 67 20 118/70 (86) 96 Intake and Output 12/27/17 12/28/17 19:00 07:00 Intake Total 1541 ml 1100 ml Output Total 2 ml Balance 1541 ml 1098 ml Intake Oral 641 ml 240 ml IV Total 900 ml 860 ml Output Urine Total 2 ml Height (Feet): 5 Height (Inches): 6.00 Weight (Pounds): 158 Medications Current Medications Medications (Trade) Dose Ordered Sig/Cynthia Route PRN Reason Start Time Stop Time Status Last Admin Dose Admin Acetaminophen (Tylenol) 650 mg Q6H PRN ORAL Mild Pain/Temp > 100.5 12/27/17 08:15 01/26/18 08:14 12/27/17 08:31 Cefuroxime Axetil (Ceftin) 500 mg EVERY 12 HOURS ORAL 12/27/17 21:00 01/03/18 20:59 12/28/17 08:25 Dextrose (Dextrose 50%) 25 ml Q30M PRN IV Hypoglycemia 12/24/17 17:15 01/23/18 17:14 Dextrose (Dextrose 50%) 50 ml Q30M PRN IV Hypoglycemia 12/24/17 17:15 01/23/18 17:14 Insulin Aspart (NovoLOG) BEFORE MEALS AND HS SUBQ 12/24/17 21:00 01/23/18 20:59 12/24/17 20:54 Iopamidol (Isovue-300 100ml) 100 ml NOW PRN INJ Radiology Procedure 12/24/17 12:30 Meclizine HCl (Antivert) 50 mg Q6H ORAL 12/25/17 11:00 01/24/18 10:59 12/28/17 05:31 Metformin HCl (Glucophage) 1,000 mg BID ORAL 12/24/17 18:00 01/23/18 17:59 12/28/17 08:25 Metoclopramide HCl (Reglan) 10 mg Q8H PRN IVP Nausea & Vomiting 12/25/17 13:15 01/24/18 13:14 12/26/17 06:21 Ondansetron HCl (Zofran) 4 mg Q6H PRN IVP Nausea & Vomiting 12/24/17 17:15 01/23/18 17:14 12/26/17 16:59 Promethazine HCl (Phenergan) 25 mg Q6H PRN IM Nausea & Vomiting 12/26/17 09:30 01/25/18 09:29 12/26/17 10:47 Sodium Chloride 1,000 ml @ 75 mls/hr [id number] IV 12/26/17 09:03 01/25/18 09:02 12/27/17 22:36 Objective Narrative PHYSICAL EXAMINATION: GENERAL: NAD, HEENT: NCAT, MMM, EOMI, PERRL, No Scleral icterus, No Oral lesions, Unable to evaluate TM due to excessive cerumen. Proximal ear canal normal. No ear pain. LUNGS; CTAB, No W/C HEART: RRR, S1, S2, no m/r/g ABDOMEN: Soft. NT, ND, +BS EXTREMITIES: No C/C/E NEUROLOGIC: A/O x 4, No Strength and sensation grossly intact. Assessment/Plan Assessment/Plan 57 yo female with PMHx of DM who presented to the ED on 12/24/17 with nausea and dizziness. Dizziness and Vomiting Agree with GI that patient likely has labyrinthitis rather than an infectious. Viral infection is possible but less likely. Bacterial infection unlikely given negative imaging and lak of diarrhea. No fevers UTI UA somewhat positive UCX not specific On abx Leukocytosis - resolved DM PLAN - Cefuroxime #2/4 for UTI Would finish Tx of UTI 5-7 days 12/27 SP Ceftriaxone #3 - Neurology consults for labyrinthitis as infectious cause unlikely - Monitor clinically and supportive care. Thank you for this consult. We will continue to follow the patient with you during this hospitalization. Jamar Mondragon MD Dec 28, 2017 11:23
[2017-12-28 12:00] VITALS: BP 119/73
[2017-12-28 16:00] VITALS: BP 115/66
[2017-12-28] MEDS ORDERED: D5 1/2NS 1000ml IV ONE (17:59)
--- NOTE | 2017-12-29 11:50 | Discharge Summary ---
Discharge Summary Discharge Summary _ DATE OF ADMISSION: 12/24/2017 DATE OF DISCHARGE: 12/28/2017. Patient signed AGAINST MEDICAL ADVICE. REASON FOR ADMISSION: 57 years old female with past medical history of diabetes, presented to emergency department complaining of severe nausea, vomiting ,dizziness and lightheadedness. Patient had multiply episodes of nonbloody nonbilious vomiting and still felt nauseous. , No chest pain or shortness of breath , no focal weakness, no recent trauma. Denied fevers, chills. Upon evaluation vital signs were stable. Laboratory workup revealed leukocytosis WBC 13.5 and neutrophil count 82.6. Potassium 3.4, otherwise stable electrolytes, stable LFT and lipase. Urinalysis revealed moderate bacteria , +1 leukocyte esterase, no polyuria. CT head revealed no acute intracranial pathology. Chest x-ray revealed no acute cardiopulmonary pathology. CT of the abdomen and pelvis revealed no definite acute process. Evidence of cholelithiasis. Nonobstructive left renal calyceal calculi. Patient admitted with diagnoses of nausea and emesis, suspected labyrinthitis, urolithiasis, cholelithiasis. CONSULTANTS: ID specialist GI specialist Dr. Bowden form block maker Dr. Hatch [facility]: Patient admitted to the hospital and started on IV hydration. Renal parameters and electrolytes were closely monitored , electrolytes corrected as needed. Nephrotoxics were avoided. Blood sugar was managed with metformin and sliding scale of insulin as needed . Patein started on Reglan for probable gastropareses. GI evaluation was requested along with nephrology and ID specialist. Patient started on symptomatic treatment with meclizine. MRI of the brain was negative for any acute intracranial pathology. Patient started on oral antibiotic for UTI. Infectious disease doctor followed and recommended treatment for UTI for 5-7 days. Infectious disease specialist recommended to neurology consultation for labyrinthitis, since infectious cause was unlikely . Unfortunately neurologist was not available at this time at the facility. GI specialist seen and evaluated patient. Patient slowly started on diet and advanced as tolerated. Antiemetics provided: Reglan around the chock for gastroparesis and Zofran as needed. Patient started on proton pump inhibitor. GI specialist recommended outpatient colonoscopy. Patient decided to sign AGAINST MEDICAL ADVICE. The risks and consequences of signing AGAINST MEDICAL ADVICE were discussed with patient in detail. Patient verbalized understanding, nevertheless signed AMA form and left. FINAL DIAGNOSES: Probably labyrinthitis Gastroparesis due to diabetes mellitus Diabetes mellitus Urinary tract infection Urolithiasis Cholelithiasis I have been assigned to dictate discharge summary for this account. I was not involved in the patient's management. Franca Andrade NP Dec 29, 2017 11:50
== END 2017-12-28 18:00 | disposition left against medical advice (07) | DRG 111 ==
LOC: EDBD 10:56 → EMR 11:10 → 3E 11:47 → EDBEDREQ 12:17
DX: H83.09 Labyrinthitis, unspecified ear (principal); K31.84 Gastroparesis; E11.43 Type 2 diabetes mellitus with diabetic autonomic (poly)neuropathy; N20.9 Urinary calculus, unspecified; K80.20 Calculus of gallbladder without cholecystitis without obstruction; N39.0 Urinary tract infection, site not specified; Z79.84 Long term (current) use of oral hypoglycemic drugs; Z53.21 Procedure and treatment not carried out due to patient leaving prior to being seen by health care provider
CPT/HCPCS: 36415; 70450; 70551; 71045; 74176; 80048; 80053; 81003; 82550; 82553; 82962; 83690; 84484; 85025; 87086; 93005; 96365; 96375; 99285; J1815; J2405; J2765; J8499